=== PATIENT | female | born 1940 | race Caucasian/White ===

== ENCOUNTER → 2020-03-10 | Outpatient (CLI) | payer OTHER ==
[~2020-03-10] MED LIST: ASPIR 8181 MG; BENAZEPRIL HCL40 MG; CENTRUM SILVER1 EAC4; CO Q-10100 MG; FISH OIL 1,001000 M2 PO; LEVOTHYROXINE 0.1 MG; RESVERATROL100 MG; ZOCOR20 MG
== END ==
LOC: M.RAD 02-18 16:06
PROVIDERS: ATTEND Family Medicine
DX: Z12.31 Encounter for screening mammogram for malignant neoplasm of breast (principal)

== ENCOUNTER → 2020-06-30 | Outpatient (CLI) | payer OTHER ==
[~2020-06-30] MED LIST changes: +ELIQUIS5 MG PO; +LEVOXYL100 MCG PO; +PROPAFENONE 15150 MG PO
[2020-06-30 10:46] LABS: ABSOLUTE EOSINOPHILS 0.1 thou/uL (0.0-0.7); ABSOLUTE LYMPHOCYTES 1.7 thou/uL (0.8-5.3); ABSOLUTE MONOCYTES 0.4 thou/uL (0.0-1.2); ABSOLUTE NEUTROPHILS 2.5 thou/uL (1.6-8.1); EOSINOPHILS 1.9 %; HEMATOCRIT 42.2 % (37.0-47.0); HEMOGLOBIN 14.1 gm/dL (12.0-15.0); LYMPHOCYTES 36.5 %; MCH 31.7 pg (26.0-34.0); MCHC 33.4 g/dL (28.0-37.0); MCV 94.9 fL (80.0-100.0); MONOCYTES 8.4 %; MPV 8.4 fl. (7.2-11.1); NUCLEATED RBCS 0 /100WBC; PLATELET COUNT* 204 thou/uL (150-400); POLYS 52.2 %; RBC 4.45 mil/uL (4.20-5.00); RDW-CV 12.9 % (10.5-14.5); WBC 4.7 thou/uL (4.0-11.0)
[2020-06-30 11:03] LABS: ALBUMIN 3.8 g/dL (3.4-5.0); CALCIUM 9.1 mg/dL (8.5-10.1); POTASSIUM 4.8 mmol/L (3.5-5.1); TOTAL BILIRUBIN 0.8 mg/dL (<0.1-1.0); TOTAL PROTEIN 7.4 g/dL (6.4-8.2)
[2020-06-30 11:22] LABS: INR 1.1; PROTIME 11.4 Seconds (9.20-11.50)
[2020-06-30 11:54] LABS: ESR (SEDRATE) 9 mm/hr (0-30)
== END ==
LOC: M.LAB 10:23
PROVIDERS: ATTEND Orthopaedic Surgery
DX: Z01.812 Encounter for preprocedural laboratory examination (principal); Z20.828 Contact with and (suspected) exposure to other viral communicable diseases; M16.11 Unilateral primary osteoarthritis, right hip

== ENCOUNTER 2020-07-06 09:33 | Inpatient (IN) | payer OTHER ==
[~2020-07-06] VITALS: Ht 162.6 cm; Wt 68.0 kg
--- NOTE | ~2020-07-06 | OP ---
[address] [address] OPERATIVE REPORT Name: AMANDAJAGJIT Room: [address] IN M.R.#: [id number] Admission: 07/06/20 Attend Phys: Jeffery Perry Discharge: Date of : 44 Report #: [id number] THIS REPORT FOR: //name// cc: Regino York MD, Tuongvan T. MD ~ CC: Paul Alexandre DATE OF SERVICE: 07/06/2020 PREOPERATIVE DIAGNOSIS: Severe degenerative joint disease, right knee. POSTOPERATIVE DIAGNOSIS: Severe degenerative joint disease, right knee. OPERATION PERFORMED: Right total knee arthroplasty with Biomet Getbazzaguard total knee system with the following components: 1. A 67.5 mm cemented, cruciate retained right femur. 2. A 71 mm cemented, cruciate thinned tibial baseplate. 3. A 34 mm cemented tri-peg all-polyethylene patella. 4. A 10 mm anterior stabilized polyethylene tibial bearing. SURGEON: Paul Gutierrez DO ASSISTANTS: 1. ____, DO. 2. Violetta Martin PA-C. ANESTHESIA: Spinal anesthetic with monitored anesthesia care and adductor canal nerve block. TOURNIQUET: Zero minutes. ANTIBIOTICS: 2 g of Ancef given IV 1 hour prior to incision. ESTIMATED BLOOD LOSS: 200 mL. DRAINS: None. SPECIMENS: None. COMPLICATIONS: None. CONDITION: Stable to PACU. DISPOSITION: PACU and medical/surgical floor. [address] [place] [address] OPERATIVE REPORT Name: AMANDAJAGJIT BROOKS Room: [address] IN .R.#: [id number] Admission: 07/06/20 Attend Phys: Jeffery Perry Discharge: Date of : 44 Report #: [id number] INDICATIONS FOR PROCEDURE: The patient is a pleasant 79-year-old female who has had ongoing right knee pain and weakness greater than 3 months that was refractory to conservative measures of rest, ice, nonsteroidal anti-inflammatories, activity modification and steroid injections, was subsequently diagnosed with right severe degenerative joint disease, recommended to undergo right total knee arthroplasty. Therefore, the risks, benefits, treatment options, alternatives, and indications were discussed with the patient. Risks include but not limited to damage to surrounding neurovascular structures, continued pain, continued bleeding, need for repeat surgery, wound dehiscence, infection, DVT, PE, as well as hearing complications of anesthesia. The patient understood the risks and wished to proceed with surgery. DESCRIPTION OF PROCEDURE: The patient was seen in the preop holding area where consent was obtained and signed. Right lower extremity was marked and initialed. She was given the benefit of adductor canal block. The patient was then transferred back to the operative suite and placed supine on the operating room table. She was given the benefit of spinal anesthetic with monitored anesthesia care and then placed supine on the operating room table. A well-padded tourniquet was applied to the right lower extremity and then all bony prominences were well-padded with leg placed in appropriate position. Right lower extremity was then sterilely prepped utilizing Hibiclens scrub followed by alcohol rinse, then ChloraPrep x 2 and draped free in normal sterile fashion. Timeout was then headed indicating appropriate patient, procedure to be performed, operative site, operating surgeon, preoperative antibiotics and all in attendance were in agreeance. Next, surgery began with a midline incision over the anterior aspect of the knee, followed by elevation of the medial flap. Next, a standard medial parapatellar arthrotomy was subsequently performed ____ 10 blade scalpel. Medial sleeve was then elevated off the tibia. Next, the patella was then everted and the knee was then hyperflexed to 130 degrees. Infrapatellar fat pad was then subsequently excised as well as anterior and posterior horns of the menisci and ACL, PCL ligaments. Next, the intramedullary reamer was then placed into the distal aspect of the femur and driven intramedullarly, followed by placement of the intramedullary distal femoral cutting guide, which was set to resect 9 mm of the distal femur with 5 degrees of valgus. This was pinned in appropriate position and distal femoral cut was subsequently made. Excess bone was cut and removed. Next, attention was directed to the tibia where the extramedullary tibial alignment guide was then placed in appropriate position referencing medial one third tibial tubercle, tibial crest and center of the ankle. This was then set to resect 10 mm off the high lateral side and pinned into position. Sequential cut was then subsequently made through the capture block. Excess bone was subsequently removed followed by removal of the medial and lateral menisci as well as the medial osteophytes were then subsequently removed. A 10 mm resection cut block was then placed in appropriate position, which did [place] [address] OPERATIVE REPORT Name: JAGJIT PATEL Room: [facility] IN M.R.#: [id number] Admission: 07/06/20 Attend Phys: Jeffery Perry Discharge: Date of : 44 Report #: [id number] adequate resection; however, there was some tightness medially. The MCL was then subsequently packed with an 18-gauge spinal needle until symmetric gaps were then subsequently obtained both flexion and extension. Next, the knee was hyperflexed again and the femur was then sized to a 67.5 mm and then 3 degrees external rotation drill holes were then drilled and 4-in-1 cutting block was malleted into appropriate position and locked in position with pins. Sequential cuts were then made through the capture block. Excess bone was subsequently removed. Next tibia was then sized at 67.5 mm tibial block as well as a guide christopher was then placed in appropriate position for evaluation in appropriate alignment. This was then pinned in appropriate position. A trial femur was then placed in appropriate position and the femoral drill lugs was then subsequently drilled. The 10 mm spacer block was then placed into position and this allowed full flexion and extension as well as symmetric medial and lateral gaps throughout flexion and extension and less than 3 mm of anterior posterior excursion throughout mid flexion. Next, the knee was then brought into full extension and the patella was then cut utilizing a patellar reamer with the size 46 mm reamer. This was then sized to a 34 mm patellar button. Then, 3 peg drill holes were then subsequently drilled. The trial patella was placed in appropriate position. The knee was brought through range of motion with adequate tracking of the patella within the trochlear groove. Next, trial implants were then subsequently removed and pericapsular injection was injected into the posterior aspect of the knee as well as medial and lateral periosteal sleeve, quadriceps and surrounding skin. All bony surfaces were then thoroughly irrigated with pulse lavage and then a small amount of cement was placed on the back side in the implants and then pressurized into the interstices of bone with finger packing technique. Final implants were then malleted on to a cleansed and dried cement and then excess cement was subsequently removed. A 10 mm spacer was subsequently placed and allowed full extension, flexion and less than 3 mm of anterior posterior excursion. Therefore, the final 10 mm spacer was placed and then cleansed and dried tibial tray. Her patella was then placed in appropriate position and the knee was brought to 90 degrees of flexion and then 1 gram of vancomycin was sprinkled into the knee and then clotted capsule were then subsequently closed utilizing #1 Vicryl in [id number] interrupted fashion, followed by running #1 Stratafix. Skin was then subsequently closed utilizing a 2-0 Monocryl in simple inverted interrupted subcuticular stitches, followed by running 3-0 Stratafix subcuticular stitch and skin glue and a Mepilex dressing. Sponge and needle counts correct x 2. Dr. Gutierrez was present for all critical aspects of the case and the patient was then transferred back to PACU in normal stable condition. By: [id number] Gutierrez DO /nt
[~2020-07-06 09:33] MED LIST changes: +BENAZEPRIL HCL20 MG PO; -BENAZEPRIL HCL40 MG
[2020-07-06] MEDS ORDERED: LEVOTHYROXINE150 MCG PO (10:09)
[2020-07-06] MEDS ORDERED: TOPROL XL25 MG PO (10:14)
[2020-07-06 10:23] LABS: PROTIME 10.7 Seconds (9.20-11.50)
--- NOTE | 2020-07-06 15:45 | NUR ---
pt transfered from pacu to room 107.
--- NOTE | 2020-07-06 19:24 | NUR ---
A&OX 4, PWD, RIGHT KNEE DRESSING C,D,&I, THIGH HIGH TEDS ON PARISH LEGS. CALF SCD'S ON PARISH. LEGS. PAIN PILL OXY 5MG GIVEN AT 1648 FOR RIGHT KNEE PAIN. IV LEFT WRIST WITH 1/2NS AT 80MLS/HR. LUNGS CLEAR, HEART TONES REG. PPM IN LEFT CHEST. +BS X 4 QUADS. PEDAL PULSES PRESENT. CALL LIGHT WITH IN REACH. NO C/O AT THIS TIME. WILL CONTINUE TO MONITOR.
[2020-07-06 20:00] VITALS: BP 135/60
[2020-07-07] VITALS: BP 111/53
--- NOTE | 2020-07-07 04:11 | NUR ---
PT A&O, VSS ON RA. ON CONTINUOUS PULSE OX. NO VOIDING ISSUE. UP TO [facility] WITH MINIMUM ASSIST. C/O MILD PAIN AFTER GETTING UP BUT SHE REFUSED PAIN MEDS. DRESSING TO RT KNEE C/D/I. ON Q PUMP IN PLACE. IVF INFUISING. CALL LIGHT WITHIN REACH, WILL CONTINUE TO MONITOR.
[2020-07-07 04:28] VITALS: BP 100/46
[2020-07-07 04:45] LABS: HEMATOCRIT 31.1 % (37.0-47.0); HEMOGLOBIN 10.8 gm/dL (12.0-15.0)
[2020-07-07] MEDS ORDERED: OXYCODONE HCL 55 MG PO (08:12)
[2020-07-07 09:00] VITALS: BP 86/37
--- NOTE | 2020-07-07 12:00 | NUR ---
RESTING IN BED. SAID SHE IS FEELING BETTER THAN THIS AM. COULD NOT DO THERAPY DUE TO N/V. BP WAS LOW, ALSO. HOPES TO GO HOME LATER TODAY. SHE ALREADY TAKES ELIQUIS AT HOME AN ANTI COAGULANT. HAS A WALKER. HER HOME IS A [place]PLIT LEVEL. TO GET IN THERE ARE 7 STAIRS. INSIDE THERE ARE 7 STAIRS TO GO UP AND 7 STAIRS TO GO DOWNSTAIRS. SHE SAID HER WILL BE THERE TO ASSIST HER NEEDED. TOLD HER IT MAY BE TOMORROW BEFORE SHE CAN GO HOME, SINCE SHE MISSED THIS AMS THERAPY SESSION BUT DEPENDS ON HOW SHE DOES THIS AFTERNOON. SHE WANTS TO DO OUTPT.THERAPY WITH [facility]. SHE WENT THERE PRE OP.
[2020-07-07 15:42] VITALS: BP 133/50
--- NOTE | 2020-07-07 18:44 | NUR ---
PT STARTED DAY WITH NAUSEA AND VOMITING AND LOW BP, AM BP MEDS WERE HELD. SHE DID RECEIVE MEDS FOR PAIN. PT WAS AO X4 VSS EXCEPT BP SOFT. AT BEDSIDE FOR SUPPORT. SHE WAS WANTING TO GO HOME BUT PT DIDNT WORK WITH HER UNTIL AFTER LUNCH. WHEN PT DID WORK WITH HER SHE VOMITED AGAIN, HER BP WAS AGAIN FOUND TO BE LOW AND PT STATED WITH THE AMOUNT OF STAIRS THAT THIS PT HAS TO NAVIGATE IT WOULD BE SAFER FOR HER TO STAY OVERNIGHT AND REEVAL IN AM FOR DISCHARGE. PT WAS [place] [facility] [place] AND DID AMBULATE TO TOILET WITH PHYSICAL THERAPY BUT WAS SLOW. PAIN PUMP STILL IN PLACE, PT TAKING TYLENOL AND OXYCODONE FOR PAIN WITH GOOD RESULTS. PM BLOOD PRESSURE WAS BETTER, NO FURTHER NAUSEA OR VOMITING.
[2020-07-07 19:37] VITALS: BP 137/46
[2020-07-08] VITALS (7 sets, daily range): BP systolic 112–143; BP diastolic 32–54
[2020-07-08 03:47] LABS: HEMATOCRIT 27.5 % (37.0-47.0); HEMOGLOBIN 9.5 gm/dL (12.0-15.0)
--- NOTE | 2020-07-08 05:29 | NUR ---
PT A&OX4, VSS ON RA, PT UP WITH ASSIST, ON-Q PUMP IN PLACE, IV FLUIDS INFUSING ORDERED, NO NAUSEA OR VOMITING THIS SHIFT. PT DID NOT WANT OXYCODONE SHE FELT IT WAS WHAT WAS CAUSING HER NAUSEA AND VOMITING, DR. MG CONTACTED AND ORDER GIVEN FOR TORADOL SCHEDULED AND TRAMADOL Q4H PRN. PT SLEEPING WELL. HOURLY ROUNDINGS COMPLETE, WILL CONTINUE TO MONITOR.
--- NOTE | 2020-07-08 09:37 | NUR ---
RECIEVED O.T. ORDER. WILL DEFER TO P.T. AT THIS TIME. PLEASE ORDER FURTHER O.T. SERVICES IF NEEDED.
[2020-07-08 12:51] LABS: POTASSIUM 3.9 mmol/L (3.5-5.1)
--- NOTE | 2020-07-08 15:00 | NUR ---
PT.TO DISCHARGE HOME TODAY. WANTS TO DO OUTPT.THERAPY AT [facility]. OFFERED HOME HEALTH SINCE SHE WAS HAVIGN LOW BP AT TIMES. SHE SAID NO I NEVER EVEN ENVISIONED MYSELF HAVING HH. MY WILL GET ME THERE. FAXED OUTPT.PT ORDERS,FACE SHEET AND OP REPORT TO [facility] [phone].
[2020-07-08] MEDS ORDERED: TRAMADOL 50 MG50 MG PO (15:39)
--- NOTE | 2020-07-08 16:45 | NUR ---
PATIENT DISCHARGE TO HOME WITH OUTPATIENT THERAPY. DISCHARGE PAPERS REVIEWED AND SIGNED. PRESCRIPTIONS AND INFORMATION SHEETS GIVEN. IV REMOVED. ONQ PUMP INSTRUCTIONS GIVEN. PATIENT DENIES ANY FURTHER NEEDS. PATIENT TAKEN BY WHEELCHAIR TO EXIT. LEFT WITH .
== END 2020-07-08 16:45 | disposition home or self-care (01) | DRG 470 ==
LOC: M.PRE → M.TBA 09:33 → M.PRE 09:35 → M.TBA 14:45 → M.ORTHSURG 14:45 → M.PRE 14:50 → M.TBA 15:00 → M.ORTHSURG 15:57
PROVIDERS: Internal Medicine; Orthopaedic Surgery; ADMIT Internal Medicine; ATTEND Internal Medicine
PROC: 0SRC0J9 Replacement of Right Knee Joint with Synthetic Substitute, Cemented, Open Approach (ICD-10-PCS; principal; 2020-07-06)
PROC: 3E0T3BZ Introduction of Anesthetic Agent into Peripheral Nerves and Plexi, Percutaneous Approach (ICD-10-PCS; principal; 2020-07-06)
DX: M17.11 Unilateral primary osteoarthritis, right knee (principal); D62 Acute posthemorrhagic anemia; I10 Essential (primary) hypertension; E03.9 Hypothyroidism, unspecified; K21.9 Gastro-esophageal reflux disease without esophagitis; E78.5 Hyperlipidemia, unspecified; Z95.0 Presence of cardiac pacemaker; Z88.8 Allergy status to other drugs, medicaments and biological substances; Z79.899 Other long term (current) drug therapy; Z79.01 Long term (current) use of anticoagulants